=== PATIENT | female | born 1985 | race Caucasian/White ===

== ENCOUNTER 2020-04-19 09:39 | Emergency (ER) | payer MEDICAID ==
[~2020-04-19] VITALS: Ht 167.6 cm; Wt 72.0 kg
[~2020-04-19 09:39] MED LIST: AMOX500C PO
[2020-04-19 10:19] VITALS: BP 108/54
--- NOTE | 2020-04-19 10:31 | PHYS DOC ---
Past Medical History Past Medical History: Anemia, Asthma, Depression Past Surgical History: Tonsillectomy, Other Additional Past Surgical Histo: wisdom teeth, 9 ankle surgeries, left knee surgery Smoking Status: Current Every Day Smoker Alcohol Use: Occasionally Drug Use: None General Adult EDM: Chief Complaint: LOWEREXTREMITY INJURY HPI: HPI: Patient is a 34 year old female arrives with a chief complaint of left leg and foot pain. Patient was doing cart wheels and hit her left leg on a cellulitis a couple days ago. Patient noticed bruising and swelling that started yesterday. Patient describes moderate to severe left calf pain that radiates to the foot and up into the left thigh. Pain is worse with palpation and range of motion. Patient denies any focal weakness or numbness. Patient also hit her head has had a throbbing headache since then. Patient denies having loss of consciousness. Patient says she is having random bruising throughout her body. Review of Systems: Review of Systems: Constitutional: Denies fever or chills. [] Eyes: Denies change in visual acuity. [] HENT: Denies nasal congestion or sore throat. [] Respiratory: Denies cough or shortness of breath. [] Cardiovascular: Denies chest pain or edema. [] GI: Denies abdominal pain, nausea, vomiting, bloody stools or diarrhea. [] : Denies dysuria. [] Musculoskeletal: Denies back pain complains of left leg pain Integument: Denies rash. [] Neurologic: Complains of headache but no focal weakness or sensory changes. [] Endocrine: Denies polyuria or polydipsia. [] Lymphatic: Denies swollen glands. [] Psychiatric: Denies depression or anxiety. [] Heart Score: Risk Factors: Risk Factors: DM, Current or recent (<one month) smoker, HTN, HLP, family history of CAD, obesity. Risk Scores: Score 0 - 3: 2.5% MACE over next 6 weeks - Discharge Home Score 4 - 6: 20.3% MACE over next 6 weeks - Admit for Clinical Observation Score 7 - 10: 72.7% MACE over next 6 weeks - Early Invasive Strategies Current Medications: Active Scripts Active Amoxicillin 500 Mg Capsule 1 Cap PO BID Allergies: Allergies: Allergies Coded Allergies Type Severity Reaction Last Updated Verified divalproex sodium Allergy Unknown 09/18/13 Yes venom-honey bee Allergy Unknown 09/18/13 Yes Physical Exam: PE: Constitutional: Well developed, well nourished, no acute distress, non-toxic appearance. [] HENT: Normocephalic, atraumatic, bilateral external ears normal, no trismus nose normal. [] Eyes: PERRLA, EOMI, conjunctiva normal, no discharge. [] Neck: Normal range of motion, no tenderness, supple, no stridor. [] Cardiovascular:Heart rate regular rhythm, peripheral pulses are intact cap refill is brisk Lungs & Thorax: Bilateral breath sounds clear, no respiratory distress Abdomen: soft, no tenderness, no masses, no pulsatile masses. [] Skin: Warm, dry, no erythema, no rash. [Bruising to the left calf scattered bruising throughout the left thigh] Back: No tenderness, no CVA tenderness. [] Extremities: Bruising and tenderness and mild swelling to left calf. Mild tenderness to palpate left foot. Neurovascular intact. Camacho test normal. Calf compartment is soft Neurologic: Alert and oriented X 3, normal motor function, normal sensory function, no focal deficits noted. [] Psychologic: Affect normal, judgement normal, mood normal. [] Current Patient Data: Vital Signs: Vital Signs Date Time Temp Pulse Resp B/P (MAP) Pulse Ox O2 Delivery O2 Flow Rate FiO2 04/19/20 10:19 97.3 94 18 108/54 (72) 97 Room Air 97.3 EKG: EKG: [] Radiology/Procedures: Radiology/Procedures: [][facility] [address] [place] [address] IMAGING REPORT Signed PATIENT: CATHY GARCIA ACCOUNT: [id number] : 1985 LOCATION: ER AGE: 34 SEX: F EXAM STATUS: REG ER ORD. PHYSICIAN: JOSH ALVARADO MD REASON: MID LEG INJURY X 2 DAYS AGO. BRUISED PROCEDURE: TIBIA FIBULA LEFT PROCEDURE: FOOT LEFT 3V STUDY DATE: 04/19/2020 CLINICAL INDICATION / HISTORY: Reason: MID LEG INJURY X 2 DAYS AGO / Spl. Instructions: / History: . TECHNIQUE: AP, lateral and oblique views of the left foot. COMPARISON: None FINDINGS: No fracture or dislocation is identified. The bone density is normal. The joint space widths are maintained, and there are no erosions to suggest an inflammatory arthropathy. No soft tissue abnormality is seen. IMPRESSION: No acute osseous abnormality. PROCEDURE: TIBIA FIBULA LEFT STUDY DATE: 04/19/2020 CLINICAL INDICATION / HISTORY: Reason: MID LEG INJURY X 2 DAYS AGO / Spl. Instructions: / History: . TECHNIQUE: AP and lateral views of the left tibia and fibula. COMPARISON: None FINDINGS: AP and lateral views of the left tibia and fibula show no acute acute fracture, dislocation or bone destruction. An old, healed fracture of the distal fibula is present with minimal residual deformity. The soft tissues are normal. IMPRESSION: No acute osseous abnormality in the left tibia or fibula. Electronically signed by: Karlee Vargas MD (04/19/2020 11:07 AM) [id number] Course & Med Decision Making: Course & Med Decision Making Pertinent Labs and Imaging studies reviewed. (See chart for details) [] 34-year-old female presents with left leg pain. X-rays were negative. Patient is placed in a walker boot on the left leg. Examined by me after application. Patient neurovascular intact distally. Patient will be instructed to follow-up with orthopedist. Prescription for pain meds. Dragon Disclaimer: Dragon Disclaimer: This electronic medical record was generated, in whole or in part, using a voice recognition dictation system. Departure Departure Impression: Primary Impression: Contusion of left lower leg Disposition: 01 DC HOME SELF CARE/HOMELESS Condition: STABLE Referrals: NO PCP (PCP) JONATHAN MEYERS MD 2-3 DAYS Patient Instructions: Contusion Additional Instructions: EMERGENCY DEPARTMENT GENERAL DISCHARGE INSTRUCTIONS THANK YOU for coming to [facility] Emergency Department (ED) today and trusting us with your care. We trust that you had a positive experience in our Emergency Department. If you wish to speak to the department Management you can contact the social studies department chair at . YOUR FOLLOW UP INSTRUCTIONS ARE FOLLOWS: Do you have a private doctor? If you do not have a private doctor, please ask for a resource list of physicians or clinics that may be able to assist you with follow up care. The Emergency Physician has interpreted your x-rays. The X-ray specialist will also review them. If there is a change in the findings you will be notified in 48 hours when at all possible. A lab test or lab culture may have been done, your results will be reviewed and you will be notified if you need a change in treatment. ADDITIONAL INSTRUCTIONS AND INFORMATION Your care today has been supervised by a physician who is specially trained in emergency care. Many problems require more than one evaluation for a complete diagnosis and treatment. We recommend that you schedule your follow up appointment as recommended to ensure complete treatment of your illness or injury. If you are unable to obtain follow up care and continue to have a problem, or if your condition worsens we recommend that you return to the ED. We are not able to safely determine your condition over the phone nor are we able to give sound medical advice over the phone. For these safety reasons, if you call for medical advice we will ask you to come to the ED for further evaluation If you have any questions regarding these discharge instructions please call the ED at . SAFETY INFORMATION In the interest of safety, wellness, and injury prevention; we encourage you to wear your seatbelt, if you smoke; quit smoking, and we encourage your family to use protective helmet for bicycling and other sporting events that present an increased risk for head injury. IF YOUR SYMPTOMS WORSEN OR NEW SYMPTOMS DEVELOP, OR YOU HAVE CONCERNS ABOUT YOUR CONDITION; OR IF YOUR CONDITION WORSENS WHILE YOU ARE WAITING FOR YOUR FOLLOW UP APPOINTMENT; EITHER CONTACT YOUR PRIMARY CARE DOCTOR, THE PHYSICIAN WHOSE NAME AND NUMBER YOU WERE GIVEN, OR RETURN TO THE ED IMMEDIATELY. Scripts Hydrocodone/Apap 5-325 (NORCO 5-325 TABLET) 1 Each Tablet 1-2 EACH PO PRN Q6HRS PRN for PAIN, #15 as needed for pain Prov: JOSH ALVARADO MD 04/19/20 Naproxen (NAPROSYN) 500 Mg Tablet 1 TAB PO BID for pain, #20 TAB 0 Refills Prov: JOSH ALVARADO MD 04/19/20 JOSH ALVARADO MD Apr 19, 2020 10:31
--- NOTE | 2020-04-19 11:11 | RAD ---
PROCEDURE: FOOT LEFT 3V STUDY DATE: 04/19/2020 CLINICAL INDICATION / HISTORY: Reason: MID LEG INJURY X 2 DAYS AGO / Spl. Instructions: / History: . TECHNIQUE: AP, lateral and oblique views of the left foot. COMPARISON: None FINDINGS: No fracture or dislocation is identified. The bone density is normal. The joint space widths are maintained, and there are no erosions to suggest an inflammatory arthropathy. No soft tissue abnormality is seen. IMPRESSION: No acute osseous abnormality. PROCEDURE: TIBIA FIBULA LEFT STUDY DATE: 04/19/2020 CLINICAL INDICATION / HISTORY: Reason: MID LEG INJURY X 2 DAYS AGO / Spl. Instructions: / History: . TECHNIQUE: AP and lateral views of the left tibia and fibula. COMPARISON: None FINDINGS: AP and lateral views of the left tibia and fibula show no acute acute fracture, dislocation or bone destruction. An old, healed fracture of the distal fibula is present with minimal residual deformity. The soft tissues are normal. IMPRESSION: No acute osseous abnormality in the left tibia or fibula. Electronically signed by: Karlee Vargas MD (04/19/2020 11:07 AM) [id number]
[2020-04-19] MEDS ORDERED: HYDR-3164 PO (11:56)
[2020-04-19] MEDS ORDERED: NAPR-683 PO (11:56)
== END 2020-04-19 12:03 | disposition home or self-care (01) ==
LOC: ER 09:39
DX: S80.12XA Contusion of left lower leg, initial encounter (principal); J45.909 Unspecified asthma, uncomplicated; F17.200 Nicotine dependence, unspecified, uncomplicated; Z88.8 Allergy status to other drugs, medicaments and biological substances; Z91.030 Bee allergy status; W22.8XXA Striking against or struck by other objects, initial encounter; Y93.89 Activity, other specified; Y92.89 Other specified places as the place of occurrence of the external cause; Y99.8 Other external cause status
CPT/HCPCS: 73590; 73630; 99284